=== PATIENT | female | born 1965 | race Caucasian/White ===

== ENCOUNTER 2022-11-01 09:58 | Emergency (ER) | payer MEDICAID ==
[~2022-11-01] VITALS: Ht 160 cm; Wt 64.6 kg
[2022-11-01 10:13] VITALS: TEMP 99.3
[2022-11-01 10:57] LABS: BASOPHILS # (AUTO) 0.1 X10'3 (0-0.2); BASOPHILS % (AUTO) 0.8 % (0-1); EOSINOPHILS # (AUTO) 0.1 X10'3 (0-0.9); EOSINOPHILS % (AUTO) 0.7 % (0-6); HEMATOCRIT 43.6 % (35.0-45.0); HEMOGLOBIN 14.3 g/dl (12.0-16.0); LYMPHOCYTES # (AUTO) 3.4 X10'3 (1.1-4.8); LYMPHOCYTES % (AUTO) 25.7 % (21-51); MEAN CORPUSCULAR HEMOGLOBIN 30.2 PG (27.0-31.0); MEAN CORPUSCULAR HGB CONC 32.8 g/dL (33.0-36.5); MEAN CORPUSCULAR VOLUME 91.8 FL (78-98); MEAN PLATELET VOLUME 7.2 FL (7.4-10.4); MONOCYTES # (AUTO) 0.6 X10'3 (0-0.9); MONOCYTES % (AUTO) 4.9 % (2-12); NEUTROPHILS # (AUTO) 8.8 X10'3 (1.8-7.7); NEUTROPHILS % (AUTO) 67.9 % (42-75); PLATELET COUNT 432 X10'3 (140-440); RED BLOOD COUNT 4.75 X10'6 (4.20-5.60); RED CELL DISTRIBUTION WIDTH 14.7 % (11.5-14.5)
[2022-11-01 11:19] LABS: ALANINE AMINOTRANSFERASE 16 U/L (12-78); ALBUMIN 3.7 G/DL (3.4-5.0); ALKALINE PHOSPHATASE 104 IU/L (46-116); ANION GAP 9 (8-16); ASPARTATE AMINO TRANSFERASE 15 U/L (10-37); BILIRUBIN,TOTAL 0.5 MG/DL (0.1-1.0); BLOOD UREA NITROGEN 11 MG/DL (7-18); BUN/CREATININE RATIO 15.1 (10.0-20.0); CALCIUM 9.6 MG/DL (8.5-10.1); CHLORIDE 105 MMOL/L (99-107); CREATININE 0.73 MG/DL (0.40-0.90); GLUCOSE 100 MG/DL (70-104); POTASSIUM 3.7 MMOL/L (3.5-5.1); SODIUM 143 MMOL/L (135-145); TOTAL CARBON DIOXIDE 29.4 MMOL/L (24-32); TOTAL PROTEIN 7.4 G/DL (6.4-8.2); eCRCL 70 ML/MIN; eGFR 82 ML/MIN
[2022-11-01 11:51] LABS: PRO BRAIN NATRIURETIC PEPTIDE 143 PG/ML (0-125)
[2022-11-01] MEDS ORDERED: LORazepam 1 MG tablet PO ONE (13:15)
[2022-11-01] MEDS ORDERED: cloNIDine 0.1 mg tablet PO ONE (13:15)
[2022-11-01] MEDS ORDERED: LORA-268 PO (14:11)
[2022-11-01 14:38] VITALS: BP 145/91; PULSE 63; RESP 19; O2SAT 100
== END 2022-11-01 14:39 | disposition home or self-care (01) ==
LOC: ER 09:59
DX: I16.0 Hypertensive urgency (principal); F41.9 Anxiety disorder, unspecified; Z88.6 Allergy status to analgesic agent; Z88.5 Allergy status to narcotic agent; Z88.0 Allergy status to penicillin
CPT/HCPCS: 36415; 71045; 80053; 83880; 84484; 85025; 93005; 99285

== ENCOUNTER 2024-08-25 10:21 | Outpatient (CLI) | payer MEDICAID ==
[~2024-08-25 10:21] MED LIST: LORA-268 PO
--- NOTE | 2024-08-25 12:11 | RADIOLOGY REPORT ---
MR lumbar spine HISTORY: LOW BACK PAIN TECHNIQUE: MR was performed with a surface coil at 1.5 T magnet. Sagittal, axial and coronal T1 and T 2-weighted images were obtained. FINDINGS: Lumbar vertebrae are normal in height signal intensity and alignment. L1-2 no narrowing of the central canal and neural foramina L2-3 no narrowing of the central canal and neural foramina L3-4 no narrowing of the central canal and neural foramina L4-5 loss of disc height and signal intensity. There is a broad-based 4-5 mm disc protrusion effacin g the thecal sac and narrowing the left neural foramen L5-S1 loss of disc height and signal intensity. 5 mm anterolisthesis due to spondylolysis. There is a broad-based 6 mm disc protrusion effacing the thecal sac and causing moderate narrowing of the neura l foramina. There appears to be effacement of the exiting right L5 nerve root at this location. Cord ends at T12-L1 and is normal in appearance IMPRESSION: 1. At L5-S1 there is a 5 mm anterolisthesis due to spondylolysis. Broad-based disc protrusion efface s the thecal sac and causes narrowing of the neural foramina, right greater than left with possible e ffacement of the exiting L5 nerve roots. 2. At L4-5 there is a 4-5 mm disc protrusion effacing the thecal sac and narrowing of the neural fora pat without nerve root compression.
== END 2024-08-25 23:59 | disposition home or self-care (01) ==
LOC: MRI02 10:21
PROVIDERS: ATTEND Family Medicine
DX: M51.27 Other intervertebral disc displacement, lumbosacral region (principal); M48.07 Spinal stenosis, lumbosacral region; M43.17 Spondylolisthesis, lumbosacral region
CPT/HCPCS: 72148

== ENCOUNTER 2024-11-22 08:31 | Outpatient (CLI) | payer MEDICAID ==
--- NOTE | 2024-11-22 09:43 | RADIOLOGY REPORT ---
CT Chest without intravenous contrast INDICATION: NICOTINE DEPENDENCE, OTHER TOBACCO PRODUCT, UNCOMPLICATED TECHNIQUE: Multidetector spiral CT of the chest was performed from the lung apices to the upper abdomen utilizing axial images. Coronal and sagittal multiplanar reformats were performed. Radiation Dose : 1. Chest: CTDI volume is 1.9 mGy. Dose-length product is 71.8 mGy*cm The dose indicators for CT are the volume Computed Tomography (CT) Dose Index (CTDIvol) and the Dose Length Product (DLP), and are measured in units of mGy and mGy-cm, respectively. These indicators are not patient dose, but values generated from the CT scanner acquisition factors. The report includes radiation exposure data for exposures received during this examination. Comparison: None Findings: Lower neck: Unremarkable thyroid. Lungs: No suspicious pulmonary nodules. Mild centrilobular emphysema. Central airways: Patent. Pleura: No pleural effusions. No pneumothorax Heart/Vascular Structures: The heart is normal in size. No pericardial effusion. There are coronary artery calcifications. Normal caliber thoracic aorta. The main pulmonary artery is normal in caliber. Lymph Nodes: Subcentimeter mediastinal lymph nodes. Musculoskeletal: No fracture or suspicious bone lesions. Body wall: Unremarkable Upper abdomen: There is a 3.1 cm low-density left adrenal nodule. IMPRESSION: 1. No suspicious pulmonary nodules. 2. Mild centrilobular emphysema. 3. Coronary artery calcifications. 4. 3.1 cm low-density left adrenal nodule., likely reflecting an adenoma. Lung-RADS: Category 1: Recommendation: Continue annual screening with LDCT [email or web address]
== END 2024-11-22 23:59 | disposition home or self-care (01) ==
LOC: RAD 08:31
PROVIDERS: ATTEND Family Medicine
DX: Z12.2 Encounter for screening for malignant neoplasm of respiratory organs (principal); J43.2 Centrilobular emphysema; R59.0 Localized enlarged lymph nodes; I25.10 Atherosclerotic heart disease of native coronary artery without angina pectoris; M54.50 Low back pain, unspecified; F17.290 Nicotine dependence, other tobacco product, uncomplicated
CPT/HCPCS: 71271